=== PATIENT | male | born 1990 | race Caucasian/White ===

== ENCOUNTER 2017-04-03 06:10 | Day surgery (SDC) | payer OTHER ==
[2017-03-27 08:22] LABS: microscopic required? NO
[2017-03-27 08:55] LABS: CALCIUM 8.8 mg/dL (8.5-10.1); CARBON DIOXIDE 28.4 mmol/L (21-32); CHLORIDE SERUM 105 mmol/L (98-107); CREATININE SERUM 0.8 mg/dL (0.7-1.3); GFR1 > 60 mL/min; GLUCOSE SERUM 97 mg/dL (74-106); POTASSIUM SERUM 4.1 mmol/L (3.5-5.1); SODIUM SERUM 141 mmol/L (136-145)
[2017-03-27 09:19] LABS: UA SPECIFIC GRAVITY 1.025 (1.005-1.035); urine erythrocyte NEGATIVE (NEGATIVE)
[2017-03-27 11:08] LABS: BASOPHIL % 0.3 % (0-2); PLATELET COUNT 317 x10^3mcL (130-400)
[~2017-04-03] VITALS: Ht 182.9 cm; Wt 106.6 kg
[2017-04-03 06:31] VITALS: BP 152/86
[2017-04-03 15:02] VITALS: BP 162/79
== END 2017-04-03 14:45 | disposition home or self-care (01) ==
LOC: DS 06:10 → OR 07:30 → DS 14:45
PROVIDERS: Neuromusculoskeletal Medicine, Sports Medicine
PROC: 0MSN4ZZ Reposition Right Knee Bursa and Ligament, Percutaneous Endoscopic Approach (ICD-10-PCS; principal; 2017-04-03 07:30)
DX: S83.511A Sprain of anterior cruciate ligament of right knee, initial encounter (principal); E66.9 Obesity, unspecified; Z68.30 Body mass index [BMI] 30.0-30.9, adult; X58.XXXA Exposure to other specified factors, initial encounter; Y93.61 Activity, american tackle football; Y92.9 Unspecified place or not applicable
CPT/HCPCS: C1713; C1762; J0690; J1170; J2175; J2250; J2405; J2704; J3010; J3490; J7030; J7120